=== PATIENT | female | born 1990 | race Two or more races ===

== ENCOUNTER 2025-02-26 06:20 | Day surgery (SDC) | payer BC ==
[2025-02-21 11:21] VITALS: BMI 30.2
[2025-02-26] MEDS ORDERED: MIDAZOLAM HCL 2 MG/2 ML SINGLE DOSE VIAL ONE (06:57)
[2025-02-26] MEDS ORDERED: LIDOCAINE HCL/PF 2% SDV 5ML VIAL ONE (06:57)
[2025-02-26] MEDS ORDERED: PROPOFOL 100 ML ONE (06:57)
[2025-02-26] MEDS ORDERED: KETOROLAC TROMETHAMINE 30 MG/1 ML VIAL ONE (06:57)
[2025-02-26] MEDS ORDERED: DEXAMETHASONE SOD PHOSPHATE 4 MG/1 ML VIAL ONE (06:57)
[2025-02-26] MEDS ORDERED: SUCCINYLCHOLINE CHLORIDE 200 MG/10 ML SYRINGE ONE (07:05)
[2025-02-26] MEDS ORDERED: ceFAZolin SODIUM 1 GM VIAL ONE (07:07)
[2025-02-26] MEDS ORDERED: FAMOTIDINE 20 MG/50 ML IVPB 20 MG/50 ML MG IVPB ONE (07:18)
[2025-02-26] MEDS ORDERED: ACETAMINOPHEN INJECTION 100 ML ONE (07:18)
[2025-02-26] MEDS ORDERED: ONDANSETRON 4 MG/2 ML VIAL IVPUSH PRN (07:22)
[2025-02-26] MEDS ORDERED: BUPIVACAINE HCL/PF 0.25% (2.5MG/ML) 10 ML VIAL ONE (07:24)
[2025-02-26] MEDS ORDERED: EPINEPHrine 1:1,000 1,000 MCG/ML ML ONE (07:24)
[2025-02-26] MEDS ORDERED: LACTATED RINGERS SOLUTION 1,000 ML IV SCH (07:30)
[2025-02-26] MEDS ORDERED: FENTANYL CITRATE/PF 50 MCG/ML VIAL ONE ×2 (08:36→08:51)
[2025-02-26] MEDS ORDERED: oxyCODONE HCL 5 MG TABLET ONE (09:44)
[2025-02-26] MEDS: oxyCODONE HCL 5 MG TABLET PO PRN (09:45)
[2025-02-26 10:29] VITALS: PULSE 52; RESP 18; TEMP 98
[2025-02-26 10:37] VITALS: BP 130/78
== END 2025-02-26 10:25 | disposition home or self-care (01) ==
LOC: FASU 06:20
PROVIDERS: ATTEND Orthopaedic Surgery Sports Medicine
PROC: 0SBC4ZZ Excision of Right Knee Joint, Percutaneous Endoscopic Approach (ICD-10-PCS; principal; 2025-02-26 07:58)
DX: S83.241A Other tear of medial meniscus, current injury, right knee, initial encounter (principal); M94.261 Chondromalacia, right knee; M65.961 Unspecified synovitis and tenosynovitis, right lower leg; X58.XXXA Exposure to other specified factors, initial encounter; Y93.9 Activity, unspecified; Y92.9 Unspecified place or not applicable
CPT/HCPCS: 81025; 94760; J0131